=== PATIENT | female | born 1995 | race American Indian/Alaskan Native ===

== ENCOUNTER 2025-01-18 10:14 | Inpatient (IN) | payer OTHER ==
[~2025-01-18] VITALS: Ht 162.6 cm; Wt 85.7 kg
[2025-01-23] MEDS ORDERED: CALCIUM CARBONATE 500 MG CHEW PO PRN ×2 (00:15→09:30)
[2025-01-23] MEDS ORDERED: PENICILLIN G POTASSIUM 5 MUNITS in SODIUM CHLORIDE 0.9% 100 ML IV ONE (00:15)
[2025-01-23] MEDS ORDERED: miSOPROStoL 25 MCG TAB PV SCH (00:15)
[2025-01-23] MEDS ORDERED: LACTATED RINGER'S 1,000 ML IV PRN (00:15)
[2025-01-23] MEDS ORDERED: MAGNESIUM HYDROXIDE/AL HYDROX 30 ML CUP PO PRN ×2 (00:15→09:30)
[2025-01-23] MEDS ORDERED: PENICILLIN G POTASSIUM 2.5 MUNITS in DEXTROSE 5% 100 ML IV SCH ×2 (00:18→09:30)
[2025-01-23 00:59] VITALS: BP 116/85
[2025-01-23 01:22] LABS: AMPHETAMINES, URINE NEGATIVE (NEGATIVE); BARBITURATES, URINE NEGATIVE (NEGATIVE); BENZODIAZEPINE, URINE NEGATIVE (NEGATIVE); BUPRENORPHINE, URINE NEGATIVE (NEGATIVE); CANNABINOID, URINE NEGATIVE (NEGATIVE); COCAINE, URINE NEGATIVE (NEGATIVE); ECSTASY, URINE NEGATIVE (NEGATIVE); FENTANYL, URINE NEGATIVE (NEGATIVE); METHADONE, URINE NEGATIVE (NEGATIVE); OPIATES, URINE NEGATIVE (NEGATIVE); OXYCODONE, URINE NEGATIVE (NEGATIVE); PHENCYCLIDINE, URINE NEGATIVE (NEGATIVE)
[2025-01-23 01:52] LABS: ABO O; RH POSITIVE
[2025-01-23 01:53] LABS: ANTIBODY SCREEN NEGATIVE
[2025-01-23 02:03] LABS: HEMATOCRIT 29.8 % (35.0-50.0); HEMOGLOBIN 10.5 g/dL (12.0-18.0); MCH 27.2 (27-36); MCV 77.7 fl (81-99); RBC 3.84 M/ul (4.3-5.7); RDW 32.1 (10.5-15.0)
[2025-01-23] MEDS ORDERED: PENICILLIN G POTASSIUM 5 MUNITS VIAL ONE (05:19)
[2025-01-23] MEDS ORDERED: LIDOCAINE HCL 1% 30 ML SDV INJ ONE (07:25)
[2025-01-23] MEDS ORDERED: OXYTOCIN/0.9 % SODIUM CHLORIDE 500 ML IV SCH ×2 (07:45→09:30)
--- NOTE | 2025-01-23 08:34 | PR ---
[facility] [address], [place] [address] Signed Progress Notes IP Datetime Report Generated by CPN: 01/23/2025 08:34 PROGRESS NOTES: [id number] Impression: Normal Progression of Labor Procedures: Scalp Electrode; Sterile Vag Exam Plan: Anticipate Vaginal Delivery VITAL SIGNS: [id number] Vital Signs: Reviewed; Within Normal Limits EXAM: [id number] Dilatation: 5.0 Effacement: 60 Station: -2 Contractions: q 2-3 min MEMBRANES: [id number] Comments: Called to pt room for increased pain / pressure / SROM, and variable decelerations. Cx soft and stretchy w/ SROM noted. FSE placed. Anticipate soon. Discussed intrapartum methods to manage variable decelerations. All questions answered. FETUS A: [id number] FHR Baseline: 125 Variability: Moderate 6-25bpm Accelerations: 15X15 Decelerations: Variable FHR Category: Category II Presentation: Vertex Comments on Fetus A: No evidence of metabolic acidosis FETUS B: [id number] Signing Physician: Jeffery Delvalle DO Copies: ~ *Electronically Signed* 01/23/2534 JEFFERY DELVALLE (SHELBIE) DO PATIENT NAME: MINERVA LOPEZ V PROGRESS NOTE DATE OF : 96 PHYSICIAN: JEFFERY DELVALLE (JD) DO RPT #: [id number] REPORT IS CONFIDENTIAL AND NOT TO BE RELEASED WITHOUT AUTHORIZATION
[2025-01-23] MEDS ORDERED: MAGNESIUM HYDROXIDE 30 ML UDC PO PRN (09:30)
[2025-01-23] MEDS ORDERED: OXYCODONE/APAP 5/325 TAB PO PRN (09:30)
[2025-01-23] MEDS ORDERED: HYDROCORTISONE ACETATE 25 MG SUPP PR PRN (09:30)
[2025-01-23] MEDS ORDERED: OXYCODONE HCL 5 MG TAB PO PRN (09:30)
[2025-01-23] MEDS ORDERED: WITCH HAZEL/GLYCERIN 1 EA PAD TOP PRN (09:30)
[2025-01-23] MEDS ORDERED: HYDROCODONE/ACETA 5/325 TAB PO PRN (09:30)
[2025-01-23] MEDS ORDERED: BENZOCAINE 60 ML AEROSOL TOP PRN (09:30)
[2025-01-23] MEDS ORDERED: IBUPROFEN 600 MG TAB PO PRN (09:30)
[2025-01-23] MEDS ORDERED: ACETAMINOPHEN 325 MG TAB PO PRN (09:30)
[2025-01-23] MEDS ORDERED: SENNOSIDES/DOCUSATE 1 EA TAB PO SCH (21:00)
[2025-01-24 05:38] LABS: HEMATOCRIT 30.2 % (35.0-50.0); HEMOGLOBIN 10.3 g/dL (12.0-18.0); MCH 26.8 (27-36); MCHC 34.2 g/dl (30-36); MCV 78.6 fl (81-99); RBC 3.85 M/ul (4.3-5.7)
== END 2025-01-24 15:36 | disposition home or self-care (01) | DRG 807 ==
LOC: FBC 01-19 07:55
PROVIDERS: ADMIT Obstetrics & Gynecology; ATTEND Obstetrics & Gynecology
PROC: 10E0XZZ Delivery of Products of Conception, External Approach (ICD-10-PCS; principal; 2025-01-23)
PROC: 10H073Z Insertion of Monitoring Electrode into Products of Conception, Via Natural or Artificial Opening (ICD-10-PCS; principal; 2025-01-23)
PROC: 10H07YZ Insertion of Other Device into Products of Conception, Via Natural or Artificial Opening (ICD-10-PCS; principal; 2025-01-23)
PROC: 0KQM0ZZ Repair Perineum Muscle, Open Approach (ICD-10-PCS; principal; 2025-01-23)
PROC: 4A1H7CZ Monitoring of Products of Conception, Cardiac Rate, Via Natural or Artificial Opening (ICD-10-PCS; principal; 2025-01-23)
DX: O48.0 Post-term pregnancy (principal); Z37.0 Single live birth; O62.3 Precipitate labor; O99.824 Streptococcus B carrier state complicating childbirth; O69.81X0 Labor and delivery complicated by cord around neck, without compression, not applicable or unspecified; Z3A.41 41 weeks gestation of pregnancy; O76 Abnormality in fetal heart rate and rhythm complicating labor and delivery; O70.1 Second degree perineal laceration during delivery; Z87.891 Personal history of nicotine dependence
CPT/HCPCS: 36415; 80307; 85027; 85060; 86850; 86900; 86901; J2540; J7121